=== PATIENT | male | born 1955 | race Caucasian/White ===

== ENCOUNTER 2018-01-13 10:29 | Emergency (ER) | payer OTHER | END 2018-01-13 13:12 | disposition home or self-care (01) | LOC: FTE 10:29 | DX: M25.511 Pain in right shoulder (principal); I10 Essential (primary) hypertension; Z85.05 Personal history of malignant neoplasm of liver; Z85.118 Personal history of other malignant neoplasm of bronchus and lung | CPT/HCPCS: 71045; 93971; 99284-25 ==

== ENCOUNTER 2018-03-14 20:17 | Emergency (ER) | payer OTHER ==
[2018-03-14 21:41] LABS: ADD MAN DIFF? NO
[2018-03-14 21:44] LABS: ABNORMAL IP MESSAGE 1; BASOPHIL # 0.1 10^3/ul (0.0-0.1); BASOPHILS % 1.1 % (0.0-2.0); EOSINOPHILS # 0.1 10^3/ul (0.0-0.5); EOSINOPHILS % 1.1 % (0.0-7.0); HEMATOCRIT 35.7 % (42.0-52.0); HEMOGLOBIN 10.1 g/dl (14.0-18.0); LYMPHOCYTES # 1.8 10^3/ul (0.8-2.9); LYMPHOCYTES % 19.2 % (15.0-51.0); MEAN CORPUSCULAR HEMOGLOBIN 21.3 pg (29.0-33.0); MEAN CORPUSCULAR HGB CONC 28.3 g/dl (32.0-37.0); MEAN CORPUSCULAR VOLUME 75.2 fl (82.0-101.0); MEAN PLATELET VOLUME 9.5 fl (7.4-10.4); MONOCYTE # 0.9 10^3/ul (0.3-0.9); MONOCYTES % 9.8 % (0.0-11.0); NEUTROPHIL # 6.5 10^3/ul (1.6-7.5); NEUTROPHILS % 68.5 % (39.0-77.0); PLATELET COUNT 313 10^3/UL (140-415); POSITIVE DIFF @See below; RED BLOOD COUNT 4.75 10^6/ul (4.70-6.10); RED CELL DISTRIBUTION WIDTH 18.8 % (11.5-14.5)
[2018-03-14 21:44] LABS: WHITE BLOOD COUNT 9.5 10^3/ul (4.8-10.8)
[2018-03-14 21:46] LABS: ADD UMIC YES; UR ASCORBIC ACID NEGATIVE (NEGATIVE); UR BILIRUBIN (Dip) NEGATIVE (NEGATIVE); UR BLOOD (Dip) 1+ mg/dL (NEGATIVE); UR CLARITY CLEAR (CLEAR); UR COLOR YELLOW (YELLOW); UR GLUCOSE (Dip) NEGATIVE (NEGATIVE); UR KETONES (Dip) NEGATIVE (NEGATIVE); UR LEUKOCYTE ESTERASE (Dip) NEGATIVE Leu/ul (NEGATIVE); UR NITRITE (Dip) NEGATIVE (NEGATIVE); UR RBC 0 /HPF (0-5); UR SPECIFIC GRAVITY (Dip) 1.012 (1.003-1.030); UR TOTAL PROTEIN (Dip) NEGATIVE (NEGATIVE); UR UROBILINOGEN (Dip) 1+ mg/dL (NEGATIVE); UR WBC 2 /HPF (0-5)
[2018-03-14 22:04] LABS: INR 1.23; PROTIME 15.7 Sec (11.9-14.9); PT RATIO 1.2
[2018-03-14 22:05] LABS: PARTIAL THROMBOPLASTIN TIME 41.1 Sec (25.0-35.0)
[2018-03-14] MEDS: ONDANSETRON 4 MG INJ IV (22:05)
[2018-03-14] MEDS: morphine 4 MG/ML VIAL IV (22:05)
[2018-03-14 22:06] LABS: ALANINE AMINOTRANSFERASE 24 IU/L (13-69); ALBUMIN 2.9 g/dl (3.3-4.9); ALBUMIN/GLOBULIN RATIO 0.72; ALKALINE PHOSPHATASE 236 IU/L (42-121); ANION GAP 13 (8-16); ASPARTATE AMINO TRANSFERASE 69 IU/L (15-46); BILIRUBIN,INDIRECT 1.3 mg/dl (0-1.1); BILIRUBIN,TOTAL 1.3 mg/dl (0.2-1.3); BLOOD UREA NITROGEN 12 mg/dl (7-20); CARBON DIOXIDE 21 mmol/L (21-31); CHLORIDE 107 mmol/L (97-110); CREATININE 0.83 mg/dl (0.61-1.24); GLUCOSE 156 mg/dl (70-220); POTASSIUM 3.7 mmol/L (3.5-5.1); SODIUM 137 mmol/L (135-144); TOTAL PROTEIN 6.9 g/dl (6.1-8.1)
[2018-03-14] MEDS: CEFEPIME 2GM/50 ML (PMX) 50 ML IVPB (22:06)
[2018-03-14] MEDS: SODIUM CHLORIDE 0.9% 1L BAG IV* (22:07)
[2018-03-14 22:15] LABS: LACTIC ACID 3.2 mmol/L (0.5-2.0)
[2018-03-14 22:22] LABS: TROPONIN-I < 0.012 ng/ml (0.00-0.12)
[2018-03-15] MEDS ORDERED: ONDANSETRON 4 MG INJ IV
[2018-03-15] MEDS: VANCOMYCIN 1 GM (PMX) 250 ML IVPB (00:29)
[2018-03-15] MEDS: metroNIDAZOLE 500 MG/NS (PMX) 100 ML IVPB (00:29)
[2018-03-15] MEDS: ACETAMINOPHEN 325 MG TAB PO (02:56)
[2018-03-15] MEDS ORDERED: ONDANSETRON 4 MG TAB PO (03:30)
[2018-03-15] MEDS ORDERED: morphine 2 MG INJ IV (03:30)
[2018-03-15] MEDS ORDERED: NACL 0.9% 3 ML SYG IV (03:30)
[2018-03-15] MEDS ORDERED: ACETAMINOPHEN 325 MG TAB PO (03:30)
[2018-03-15] MEDS ORDERED: BENZONATATE 100 MG CAP PO (04:00)
[2018-03-15] MEDS: FAMOTIDINE 20 MG TAB PO (04:08)
[2018-03-15] MEDS: D5W-0.45 NACL + KCL 20 MEQ 1,000 ML IV (04:19)
[2018-03-15 05:47] LABS: ADD MAN DIFF? NO
[2018-03-15 05:52] LABS: WHITE BLOOD COUNT 7.7 10^3/ul (4.8-10.8)
[2018-03-15 05:52] LABS: BASOPHIL # 0.1 10^3/ul (0.0-0.1); BASOPHILS % 1.2 % (0.0-2.0); EOSINOPHILS # 0.2 10^3/ul (0.0-0.5); EOSINOPHILS % 2.2 % (0.0-7.0); LYMPHOCYTES # 1.4 10^3/ul (0.8-2.9); LYMPHOCYTES % 17.6 % (15.0-51.0); MEAN CORPUSCULAR VOLUME 75.8 fl (82.0-101.0); MEAN PLATELET VOLUME 9.3 fl (7.4-10.4); MONOCYTE # 0.8 10^3/ul (0.3-0.9); MONOCYTES % 9.9 % (0.0-11.0); NEUTROPHIL # 5.3 10^3/ul (1.6-7.5); NEUTROPHILS % 68.7 % (39.0-77.0); PLATELET COUNT 257 10^3/UL (140-415); RED BLOOD COUNT 4.09 10^6/ul (4.70-6.10)
[2018-03-15] MEDS: PIPER-TAZO 3.375 GM IV (PMX) 100 ML IVPB (06:00)
[2018-03-15 06:20] LABS: ANION GAP 6 (8-16); BLOOD UREA NITROGEN 11 mg/dl (7-20); CALCIUM 7.4 mg/dl (8.4-10.2); CARBON DIOXIDE 24 mmol/L (21-31); CHLORIDE 114 mmol/L (97-110); CREATININE 0.67 mg/dl (0.61-1.24); GLUCOSE 117 mg/dl (70-220); POTASSIUM 3.6 mmol/L (3.5-5.1); SODIUM 140 mmol/L (135-144)
[2018-03-15 06:21] LABS: LACTIC ACID 1.4 mmol/L (0.5-2.0)
[2018-03-15] MEDS ORDERED: LOSARTAN 50 MG TAB PO (09:00)
[2018-03-15] MEDS ORDERED: L ACIDOPHIL/B LACTIS/B LONGUM CAPSULE PO (09:00)
[2018-03-15] MEDS ORDERED: REGORAFENIB PO (09:00)
[2018-03-15] MEDS ORDERED: ENOXAPARIN 40 MG/0.4 ML SYG SC (09:00)
== END 2018-03-15 07:00 | disposition short-term general hospital (02) ==
LOC: E/R 20:17
DX: K57.32 Diverticulitis of large intestine without perforation or abscess without bleeding (principal); R65.20 Severe sepsis without septic shock; A41.9 Sepsis, unspecified organism; D50.9 Iron deficiency anemia, unspecified
CPT/HCPCS: 36415; 71045; 74176; 80048; 80053; 81001; 83605; 84484; 85025; 85610; 85730; 87040; 87086; 93005; 96365; 96375; 99291-25